=== PATIENT | male | born 1990 | race Two or more races ===

== ENCOUNTER 2021-10-24 20:39 | Emergency (ER) | payer SELFPAY ==
[~2021-10-24] VITALS: Ht 172.7 cm; Wt 95.3 kg
[2021-10-24] MEDS ORDERED: IBUPROFEN 600 MG TAB PO ONE (23:45)
[2021-10-25 01:10] VITALS: BP 122/84
== END 2021-10-25 01:16 | disposition home or self-care (01) ==
LOC: ER 20:39
DX: S03.42XA Sprain of jaw, left side, initial encounter (principal); M79.641 Pain in right hand; M25.532 Pain in left wrist; F12.10 Cannabis abuse, uncomplicated; Y04.8XXA Assault by other bodily force, initial encounter; Y93.89 Activity, other specified; Y92.89 Other specified places as the place of occurrence of the external cause; Y99.8 Other external cause status
CPT/HCPCS: 73110; 73130